=== PATIENT | female | born 1990 ===

== ENCOUNTER 2020-08-21 11:10 | Emergency (ER) | payer SELFPAY ==
--- NOTE | 2020-08-21 12:19 | ER Document Report ---
ED Medical Screen (RME) - General Chief Complaint: Vag Bleeding, +preg <12wks Stated Complaint: VAGINAL BLEEDING Time Seen by Provider: 08/21/20 12:14 Mode of Arrival: Ambulatory Information source: Patient Notes: 29-year-old female presented to ED for with pelvic and back pain. She is 5 weeks 5 days. She has not had an ultrasound as yet. She is 1 para 0. We did use milk runner number I Ht [id number] from [employer]. We will get blood urine and transvaginal ultrasound and she will be seen by another provider. I have greeted and performed a rapid initial assessment of this patient. A comprehensive ED assessment and evaluation of the patient, analysis of test results and completion of medical decision making process will be conducted by an additional ED providers. Physical Exam - Vital signs Vitals: Temp Pulse Resp BP Pulse Ox 98.1 F 80 18 116/63 100 08/21/20 12:03 08/21/20 12:03 08/21/20 12:03 08/21/20 12:03 08/21/20 12:03 Course - Vital Signs Vital signs: Temp Pulse Resp BP Pulse Ox 98.1 F 80 18 116/63 100 08/21/20 12:03 08/21/20 12:03 08/21/20 12:03 08/21/20 12:03 08/21/20 12:03
[2020-08-21 13:18] LABS: ABSOLUTE EOSINOPHILS # (AUTO) 0.1 10^3/uL (0.0-0.6); ABSOLUTE LYMPHOCYTES (AUTO) 1.6 10^3/uL (0.5-4.7); ABSOLUTE MONOCYTES (AUTO) 0.5 10^3/uL (0.1-1.4); ABSOLUTE NEUT (AUTO) 4.7 10^3/uL (1.7-8.2); BASOPHILS % (AUTO) 0.5 % (0-2); EOSINOPHILS % (AUTO) 1.7 % (0-6); HEMATOCRIT 41.5 % (36.0-47.0); HEMOGLOBIN 13.8 g/dL (12.0-15.5); LYMPHOCYTES % (AUTO) 23.4 % (13-45); MEAN CORPUSCULAR HEMOGLOBIN 26.3 pg (27.0-33.4); MEAN CORPUSCULAR HGB CONC 33.3 g/dL (32.0-36.0); MEAN CORPUSCULAR VOLUME 79 fl (80-97); MONOCYTES % (AUTO) 6.8 % (3-13); PLATELET COUNT 239 10^3/uL (150-450); RED BLOOD COUNT 5.26 10^6/uL (3.72-5.28); RED CELL DISTRIBUTION WIDTH 14.8 % (11.5-14.0); SEGMENTED NEUTROPHILS % (AUTO) 67.6 % (42-78); TOTAL CELLS COUNTED % (AUTO) 100 %; WHITE BLOOD COUNT 6.9 10^3/uL (4.0-10.5)
[2020-08-21 13:23] LABS: APPEARANCE,URINE SLIGHTLY-CLOUDY; BILIRUBIN,URINE NEGATIVE (NEGATIVE); COLOR,URINE YELLOW; GLUCOSE, URINE NEGATIVE (NEGATIVE); KETONES,URINE NEGATIVE (NEGATIVE); LEUKOCYTE ESTERASE,URINE NEGATIVE (NEGATIVE); NITRITE,URINE NEGATIVE (NEGATIVE); PROTEIN,URINE NEGATIVE (NEGATIVE); URINE SPECIFIC GRAVITY 1.015; UROBILINOGEN,URINE NEGATIVE mg/dL (<2.0)
[2020-08-21 13:38] LABS: ALBUMIN 4.6 g/dL (3.5-5.0); ALKALINE PHOSPHATASE 82 U/L (38-126); ANION GAP 11 (5-19); ASPARTATE AMINO TRANSFERASE 23 U/L (14-36); BILIRUBIN,DIRECT 0.1 mg/dL (0.0-0.4); BILIRUBIN,TOTAL 0.4 mg/dL (0.2-1.3); BLOOD UREA NITROGEN 10 mg/dL (7-20); CALCIUM 9.8 mg/dL (8.4-10.2); CARBON DIOXIDE 24 mmol/L (22-30); CHLORIDE 104 mmol/L (98-107); GLUCOSE 90 mg/dL (75-110); POTASSIUM 4.6 mmol/L (3.6-5.0); TOTAL PROTEIN 7.9 g/dL (6.3-8.2)
--- NOTE | 2020-08-21 14:47 | RADIOLOGY REPORT (SQ) ---
EXAM DESCRIPTION: U/S OB TRANSVAGINAL W/O DOP IMAGES COMPLETED DATE/TIME: 08/21/2020 2:30 pm REASON FOR STUDY: Vaginal bleeding 5 weeks 5 days pelvic ba COMPARISON: None. TECHNIQUE: Transvaginal static and realtime grayscale images acquired of the pelvis. Additional karl cted spectral and color Doppler images recorded. All images stored on PACs. [facility] CLINICAL DATES: LMP 07/13/2020 5 weeks 4 days LIMITATIONS: None. FINDINGS: FETUS: There is no definable intrauterine gestation at this time. UTERUS: No masses. No anomalies. CERVICAL LENGTH: 2.3 cm. Closed. RIGHT ADNEXA: Normal ovary with normal vascular flow. 2.5 x 1.9 x 2.1 cm. No adnexal free fluid. No adnexal masses. LEFT ADNEXA: Normal ovary with normal vascular flow. 3.3 x 2.5 x 1.3 cm. No adnexal free fluid. No adnexal masses. FREE FLUID: None. OTHER: Questionable arcuate uterus. IMPRESSION: There is no intrauterine at this time. Follow-up as clinically indicated. TECHNICAL DOCUMENTATION: JOB ID: [id number] 2010 [email or web address]- All Rights Reserved rev-02/20 Reading location - IP/workstation name: [email or web address]
--- NOTE | 2020-08-21 18:00 | ER Document Report ---
ED GI/ - General Chief Complaint: Vag Bleeding, +preg <12wks Stated Complaint: VAGINAL BLEEDING Time Seen by Provider: 08/21/20 12:14 Mode of Arrival: Ambulatory Information source: Relative - Ty as interpreteur in room minor proceedure Notes: ED Medical Screen (Taylor vasquez) - General Chief Complaint: Vag Bleeding, +preg <12wks Stated Complaint: VAGINAL BLEEDING Time Seen by Provider: 08/21/20 12:14 Mode of Arrival: Ambulatory Information source: Patient Notes: 29-year-old female presented to ED for with pelvic and back pain. She is 5 weeks 5 days. She has not had an ultrasound as yet. She is 1 para 0. We did use nascar pit crew person number I Ht [id number] from [employer]. We will get blood urine and transvaginal ultrasound and she will be seen by another provider. MY NOTES 29-year-old female who speaks only Thai arrives with her Ty who is bilingual. Patient began to have vaginal bleeding earlier this morning with left inguinal pain. Serum hCG was 38 beta hCG urine was positive. Her ultrasound was negative for intrauterine and negative for any adnexal masses on the left or right on ultrasound as read by radiologist. Patient is a AB 1 at this time. Patient reports pain on left inguinal and left hip area or around 4 out of 10 TRAVEL OUTSIDE OF THE [place] IN LAST 30 DAYS: No - HPI Patient complains to provider of: Abdominal pain, Onset: This morning Timing/Duration: Sudden, Persistent Quality of pain: Achy Severity at maximum: Moderate Severity in ED: Moderate Pain Level: 2 Location: LLQ Vaginal bleeding (Compared to normal period): Heavier Past Medical History - General Information source: Patient - Social History Smoking Status: Never Smoker Cigarette use (# per day): No Chew tobacco use (# tins/day): No Smoking Education Provided: No Frequency of alcohol use: None Drug Abuse: None Lives with: Family Family History: Reviewed & Not Pertinent Patient has suicidal ideation: No Patient has homicidal ideation: No Review of Systems - Review of Systems Constitutional: No symptoms reported EENT: No symptoms reported Cardiovascular: No symptoms reported Respiratory: No symptoms reported Gastrointestinal: No symptoms reported Genitourinary: See HPI, Flank pain Female Genitourinary: See HPI, , Heavy/abnormal periods Musculoskeletal: No symptoms reported Skin: No symptoms reported Hematologic/Lymphatic: No symptoms reported Neurological/Psychological: No symptoms reported -: Yes All other systems reviewed and negative Physical Exam - Vital signs Vitals: Temp Pulse Resp BP Pulse Ox 98.1 F 80 18 116/63 100 08/21/20 12:03 08/21/20 12:03 08/21/20 12:03 08/21/20 12:03 08/21/20 12:03 Interpretation: Normal - General General appearance: Appears well, Alert - HEENT Head: Normocephalic, Atraumatic Eyes: Normal Pupils: PERRL - Respiratory Respiratory status: No respiratory distress Chest status: Nontender Breath sounds: Normal Chest palpation: Normal - Cardiovascular Rhythm: Regular Heart sounds: Normal auscultation Murmur: No - Abdominal Inspection: Normal Distension: No distension Bowel sounds: Normal Tenderness: Tender Organomegaly: No organomegaly - Rectal Hemorrhoids: Other - Deferred - Genitourinary Bimanuel exam: Other - Deferred to ultrasound - Back Back: Normal, Nontender - Extremities General upper extremity: Normal inspection, Nontender, Normal color, Normal ROM, Normal temperature General lower extremity: Normal inspection, Nontender, Normal color, Normal ROM, Normal temperature, Normal weight bearing. No: Armond's sign - Neurological Neuro grossly intact: Yes Cognition: Normal Orientation: AAOx4 Vini Coma Scale Eye Opening: Spontaneous Traver Coma Scale Verbal: Oriented Traver Coma Scale Motor: Obeys Commands Traver Coma Scale Total: 15 Speech: Normal Motor strength normal: LUE, RUE, LLE, RLE Sensory: Normal - Psychological Associated symptoms: Normal affect, Normal mood - Skin Skin Temperature: Warm Skin Moisture: Dry Skin Color: Normal Course - Vital Signs Vital signs: Temp Pulse Resp BP Pulse Ox 98.1 F 80 18 116/63 100 08/21/20 12:03 08/21/20 12:03 08/21/20 12:03 08/21/20 12:03 08/21/20 12:03 - Laboratory Result Diagrams: 08/21/20 12:36 08/21/20 12:36 Laboratory results interpreted by me: 08/21/20 08/21/20 08/21/20 12:36 12:36 12:36 MCV 79 L MCH 26.3 L RDW 14.8 H Beta HCG, Quant 39.68 H Urine Blood LARGE H - Diagnostic Test Radiology reviewed: Reports reviewed Critical Care Note - Critical Care Note Comments: I discussed this case with patient and her Ty who interpreted for his . I advised that the ultrasound was negative for intrauterine and negative for any masses on either left or right per ultrasound as read by radiologist. I advised them to follow-up with the [employer] Dr. Johanna Acuna outpatient or OB of choice. Discharge - Discharge Clinical Impression: Miscarriage, Vaginal bleeding, Vaginal bleeding affecting early Condition: Stable Disposition: HOME, SELF-CARE Additional Instructions: We advise you to follow-up with OB doctor of choice. Dr. Johanna Acuna is internal control analyst today you may follow-up with her. Also take antibiotics Macrobid twice a day as ordered because urine had a +1 bacteria/you do not have a inflammation in your urinalysis at this time. Vaginal rest until cleared by OB doctor. Return to ER as needed take medicines as directed Prescriptions: Nitrofurantoin Monohyd/M-Cryst [Macrobid 100 mg Capsule] 100 mg PO BID #10 cap
[2020-08-21] MEDS ORDERED: HYDROCODONE/ACETAMINOPHEN 5-325 MG TABLET PO ONE (18:02)
[2020-08-21] MEDS ORDERED: ONDANSETRON 4 MG TAB.RAPDIS PO ONE (18:02)
[2020-08-21 18:32] VITALS: BP 134/83
== END 2020-08-21 18:30 | disposition home or self-care (01) ==
LOC: ER 11:10
DX: O03.9 Complete or unspecified spontaneous abortion without complication (principal); O46.91 Antepartum hemorrhage, unspecified, first trimester; O26.891 Other specified pregnancy related conditions, first trimester; R10.2 Pelvic and perineal pain; M54.9 Dorsalgia, unspecified; M25.552 Pain in left hip; R10.32 Left lower quadrant pain; Z3A.01 Less than 8 weeks gestation of pregnancy
CPT/HCPCS: 99284; 86900; 86901; 36415; 87086; 84702; 85025; 87088; 80053; 81001; 76817; S0119; 87186